=== PATIENT | female | born 1975 | race Caucasian/White ===

== ENCOUNTER 2022-03-07 10:05 | Emergency (ER) | payer OTHER ==
[~2022-03-07] VITALS: Ht 152.4 cm; Wt 90.9 kg
[2022-03-07] MEDS ORDERED: HYDROCODONE/ACETAMINOPHEN 5-325 MG TABLET PO ONE (11:30)
[2022-03-07] MEDS ORDERED: LIDOCAINE 1% 10 ML VIAL SQ ONE (11:30)
[2022-03-07] MEDS ORDERED: DOXYCYCLINE HYCLATE 100 MG TABLET PO ONE (11:30)
[2022-03-07] MEDS ORDERED: DOXY-354 PO (12:43)
[2022-03-07] MEDS ORDERED: GABA-1181 PO (12:43)
[2022-03-07] MEDS ORDERED: IBUP-2070 PO (12:43)
[2022-03-07 13:24] VITALS: BP 140/78
== END 2022-03-07 13:32 | disposition home or self-care (01) ==
LOC: EMS 10:05
DX: L02.416 Cutaneous abscess of left lower limb (principal); K80.80 Other cholelithiasis without obstruction; Z90.49 Acquired absence of other specified parts of digestive tract; Z98.890 Other specified postprocedural states
CPT/HCPCS: 99283; 10060; J3490

== ENCOUNTER 2022-03-09 17:18 | Emergency (ER) | payer OTHER ==
[~2022-03-09] VITALS: Ht 154.9 cm; Wt 77.7 kg
[~2022-03-09 17:18] MED LIST: DOXY-354 PO; GABA-1181 PO; IBUP-2070 PO
[2022-03-09 17:32] VITALS: BP 149/77
== END 2022-03-09 19:25 | disposition home or self-care (01) ==
LOC: EMS 17:19
DX: L02.416 Cutaneous abscess of left lower limb (principal); Z90.49 Acquired absence of other specified parts of digestive tract
CPT/HCPCS: 99281; Z7502

== ENCOUNTER 2023-05-13 09:53 | Emergency (ER) | payer OTHER ==
[~2023-05-13] VITALS: Ht 152.4 cm; Wt 83.1 kg
[~2023-05-13 09:53] MED LIST changes: +IBUP-1492 PO; -IBUP-2070 PO
[2023-05-13] MEDS ORDERED: ACETAMINOPHEN/CODEINE 300-30 MG TABLET PO ONE (11:30)
[2023-05-13] MEDS ORDERED: METHOCARBAMOL 500 MG TABLET PO ONE (11:30)
[2023-05-13] MEDS ORDERED: KETOROLAC TROMETHAMINE 60 MG/2 ML VIAL IM ONE (11:30)
[2023-05-13 11:52] LABS: BASOPHILS % (AUTO) 0.3 % (0.0-2.0); EOSINOPHILS % (AUTO) 0.1 % (1.0-6.0); HEMATOCRIT 33.3 % (36-46); HEMOGLOBIN 10.8 g/dL (12.0-16.0); LYMPHOCYTES # (AUTO) 1.5 K/uL (1.0-4.8); LYMPHOCYTES % (AUTO) 11.9 % (22.0-44.0); MEAN CORPUSCULAR HEMOGLOBIN 27.4 pg (26.0-34.0); MEAN CORPUSCULAR HGB CONC 32.3 G/dL (31.0-37.0); MEAN CORPUSCULAR VOLUME 85 fL (80-100); MONOCYTES % (AUTO) 7.6 % (2.0-9.0); NEUTROPHILS # (AUTO) 10.3 K/uL (1.8-7.7); NEUTROPHILS % (AUTO) 80.1 % (40.0-70.0); PLATELET COUNT (AUTO) 433 K/uL (150-450); RED BLOOD CELL COUNT(AUTO) 3.93 MIL/uL (4.00-5.20); RED CELL DISTRIBUTION WIDTH 17.3 % (11.5-14.5); WHITE BLOOD COUNT (AUTO) 12.9 K/uL (4.5-11.0)
[2023-05-13 11:59] LABS: ANION GAP 7 mmol/L (8-16); CALCIUM, TOTAL 9.1 mg/dL (8.8-10.5); CARBON DIOXIDE 27 mmol/L (22-29); CHLORIDE 99 mmol/L (98-107); CREATININE 0.61 mg/dL (0.60-1.30); GLOMERULAR FILTR. RATE CALC > 60 mL/min (>60); GLUCOSE,RANDOM 97 mg/dL (70-110); POTASSIUM 3.5 mmol/L (3.5-5.1); SODIUM SERUM 133 mmol/L (136-145); UREA NITROGEN, BLOOD 8 mg/dL (7-18)
[2023-05-13 12:07] LABS: TROPONIN I-HIGH SENSITIVITY 5 ng/L (<51)
[2023-05-13 12:10] LABS: ALANINE AMINOTRANSFERASE 20 U/L (12-78); ALBUMIN 3.1 g/dL (3.4-5.0); ALKALINE PHOSPHATASE 117 U/L (46-116); ASPARTATE AMINOTRANSFERASE 15 U/L (15-37); BILIRUBIN,TOTAL 0.5 mg/dL (0.1-1.0); LIPASE 18 U/L (16-77); TOTAL PROTEIN, SERUM 7.8 g/dL (6.4-8.2)
[2023-05-13] MEDS ORDERED: METH-659 PO (13:10)
[2023-05-13] MEDS ORDERED: ACET-2080 PO (13:10)
[2023-05-13] MEDS ORDERED: IBUP-1554 PO (13:10)
[2023-05-13 13:32] VITALS: BP 129/77; PULSE 75; RESP 18; TEMP 98.2
== END 2023-05-13 13:34 | disposition home or self-care (01) ==
LOC: EMS 09:56
DX: S39.012A Strain of muscle, fascia and tendon of lower back, initial encounter (principal); K80.20 Calculus of gallbladder without cholecystitis without obstruction; Z90.49 Acquired absence of other specified parts of digestive tract; Z98.890 Other specified postprocedural states; X58.XXXA Exposure to other specified factors, initial encounter; Y93.89 Activity, other specified; Y92.89 Other specified places as the place of occurrence of the external cause; Y99.8 Other external cause status
CPT/HCPCS: 99284; 80053; 83690; 84484; 84703; 85025; 36415; 72100; 96372; J1885